=== PATIENT | male | born 1970 | race African-American/Black ===

== ENCOUNTER 2020-10-19 18:57 | Emergency (ER) | payer OTHER ==
[2020-10-19] MEDS ORDERED: NA CHLORIDE 0.9% 2,000 ML ONE (20:16)
[2020-10-19] MEDS ORDERED: MORPHINE 4 MG/ML SYR ONE ×2 (20:17→22:13)
[2020-10-19] MEDS ORDERED: ONDANSETRON 4 MG/2 ML VIAL ONE (20:17)
[2020-10-19 20:35] LABS: ALT/SGPT 35 U/L (12-78); AST/SGOT 19 U/L (15-37); Albumin 3.7 g/dL (3.4-5.0); Alkaline Phosphatase 52 U/L (45-117); BUN Blood Urea Nitrogen 20 mg/dL (7-18); Bicarbonate 25 mmol/L (21-32); Bilirubin Direct < 0.1 mg/dL (0-0.2); Bilirubin Total 0.3 mg/dL (0.2-1.0); Glucose Level 138 mg/dL (74-106); Lipase 103 U/L (73-393); Protein, Total 7.6 g/dL (6.4-8.2); Sodium Level 141 mmol/L (136-145)
[2020-10-19 20:40] LABS: Absolute Lymphocytes (CBC) 1.6 K/uL (0.7-4.9); Basophils % 0.2 % (0-1.3); Hematocrit 34.5 % (39.6-49.0); Lymphocytes % 19.8 % (15.3-44.8); MPV 9.4 fL (7.6-11.3); RBC Red Blood Cell Count 4.07 M/uL (4.33-5.43)
[2020-10-19 21:15] LABS: Barbiturates NEGATIVE (NEGATIVE); Benzodiazepines NEGATIVE (NEGATIVE); Cocaine NEGATIVE (NEGATIVE); METHAMPHETAM NEGATIVE (NEGATIVE); Methadone NEGATIVE (NEGATIVE); Opiates POSITIVE (NEGATIVE); Phencyclidine NEGATIVE (NEGATIVE); THC Cannibis NEGATIVE (NEGATIVE)
--- NOTE | 2020-10-19 21:18 | RAD REPORT ---
EXAM DESCRIPTION: CTAbdomen Pelvis W Contrast - 10/19/2020 9:02 pm CLINICAL HISTORY: Abdominal pain. G. I. bleed;Abd pain COMPARISON: No comparisons TECHNIQUE: Biphasic CT imaging of the abdomen and pelvis was performed with 100 ml non-ionic IV cont rast. All CT scans are performed using dose optimization technique as appropriate and may include automated exposure control or mA/KV adjustment according to patient size. FINDINGS: 6 mm noncalcified pulmonary nodule is seen in right lower lobe. The liver, spleen, pancreas, adrenal glands and kidneys are within normal limits. No bowel obstruction, free air, free fluid or abscess. The appendix is normal. No evidence of signi ficant lymphadenopathy. No suspicious bony findings. Small bilateral fat containing inguinal hernias. IMPRESSION: No acute intra-abdominal or pelvic finding. Small 6 mm noncalcified pulmonary nodule in the right lower lobe. Nonemergent CT chest followup would be recommended in 3-6 months.
[2020-10-19] MEDS ORDERED: PROMETHAZINE INJ 25 MG/ML AMP ONE (22:11)
--- NOTE | 2020-10-19 22:41 | EDPHYS ---
Physician Documentation [facility] Name: Shahram Donohue Age: 49 yrs Sex: Male : 1970 Arrival Date: 10/19/2020 Time: 19:00 Bed 17 Private MD: ED Physician Beni Connell HPI: 10/19 19:57 This 49 yrs old Black Male presents to ER via [employer] with complaints of pkl Nausea/Vomiting/Diarrhea. 19:57 The patient presents to the emergency department vomiting blood, coffee grounds in pkl nature, with rectal bleeding, dark red blood with bowel movement. Onset: The symptoms/episode began/occurred 3 day(s) ago. Abdominal pain: located in the right upper quadrant, left upper quadrant, right lower quadrant and left lower quadrant. The patient has not experienced similar symptoms in the past. Historical: - Allergies: 19:28 Sulfa (Sulfonamide Antibiotics); wh - PMHx: 19:27 Hyperlipidemia; Hypertension; Asthma; Diabetes - IDDM; Hemorrhoids; Perianal Venous wh Thombosis; - Immunization history:: Adult Immunizations unknown. - Social history:: Smoking status: unknown. ROS: 19:57 Eyes: Negative for injury, pain, redness, and discharge, ENT: Negative for injury, pkl pain, and discharge, Neck: Negative for injury, pain, and swelling, Cardiovascular: Negative for chest pain, palpitations, and edema, Respiratory: Negative for shortness of breath, cough, wheezing, and pleuritic chest pain. 19:57 Abdomen/GI: Positive for abdominal pain, nausea, vomiting, abdominal cramps, rectal bleeding, of the right upper quadrant, left upper quadrant, right lower quadrant and left lower quadrant. 19:57 Back: Negative for acute changes. 19:57 : Negative for urinary symptoms. 19:57 MS/extremity: Negative for acute changes. 19:57 Skin: Negative for rash. 19:57 Neuro: Negative for altered mental status, loss of consciousness. Exam: 19:57 Head/Face: Normocephalic, atraumatic. pkl 19:57 Eyes: Exam is negative for acute changes. 19:57 ENT: Mouth: Oral mucosa: Tongue: dry. 19:57 Neck: Exam negative for nuchal rigidity. 19:57 Chest/axilla: Exam negative for acute changes. 19:57 Cardiovascular: Rate: normal, Rhythm: regular. 19:57 Respiratory: the patient does not display signs of respiratory distress, Respirations: normal, Breath sounds: are clear throughout. 19:57 Abdomen/GI: Bowel sounds: normal, Palpation: soft, mild abdominal tenderness, in all quadrants, Rectal exam: Stool: guaiac positive, maroon. 19:57 Back: Exam negative for acute changes. 19:57 : Exam negative for acute changes. 19:57 Musculoskeletal/extremity: Exam is negative for acute changes. 19:57 Skin: Exam negative for rash. 19:57 Neuro: Orientation: is normal, Mentation: is normal, Cranial nerves: grossly normal, Motor: is normal. Vital Signs: 19:33 BP 148 / 92; Pulse 94; Resp 20; Temp 97.8; Pulse Ox 98% ; Weight 117.93 kg; Height 5 wh ft. 10 in. (177.80 cm); 21:00 BP 129 / 72; Pulse 78; Resp 18; Pulse Ox 98% on R/A; wh 22:41 BP 116 / 63; Pulse 102; Resp 18; Pulse Ox 95% ; wh 23:41 BP 133 / 83; Pulse 99; Resp 18; Pulse Ox 95% on R/A; 10/20 00:54 BP 127 / 81; Pulse 94; Resp 16; Pulse Ox 95% on R/A; jm8 03:49 BP 133 / 72; Pulse 89; Resp 18; Pulse Ox 94% on R/A; 10/19 19:33 Body Mass Index 37.31 (117.93 kg, 177.80 cm) MDM: 10/19 19:06 Patient medically screened. kb 22:29 Data reviewed: vital signs, nurses notes, lab test result(s), radiologic studies, CT pkl scan. ED course: Talked to Dr. Pérez. transfer to [facility]. 22:40 Patient medically screened. pkl 10/19 19:54 Order name: Basic Metabolic Panel pkl 10/19 19:54 Order name: CBC with Diff; Complete Time: 21:10 pkl 10/19 19:54 Order name: Hepatic Function; Complete Time: 21:10 pkl 10/19 19:54 Order name: Lipase; Complete Time: 21:10 pkl 10/19 19:54 Order name: Type And Screen; Complete Time: 22:41 pkl 10/19 19:54 Order name: CT Abd/Pelvis - IV Contrast Only; Complete Time: 21:54 pkl 10/19 19:54 Order name: Basic Metabolic Panel; Complete Time: 21:10 EDMS 10/19 20:08 Order name: UDS; Complete Time: 21:54 mw2 10/19 21:36 Order name: SARS-COV-2 RT PCR; Complete Time: 21:54 EDMS 10/19 19:03 Order name: Other: REMOVE RESTRAINTS FOR HYGIENE AND TREATMENT; Complete Time: 03:25 bp 10/19 19:54 Order name: IV Saline Lock; Complete Time: 20:04 pkl 10/19 19:54 Order name: Labs collected and sent; Complete Time: 20:04 pkl Administered Medications: 20:02 Drug: morphine 4 mg {Note: RASS 0.} Route: IVP; Site: right antecubital; 21:12 Follow up: Response: No adverse reaction; Pain is decreased; RASS: Alert and Calm (0) 20:03 Drug: NS 0.9% 1000 ml Route: IV; Rate: 125 ml/hr; Site: right antecubital; 20:04 Drug: Zofran (Ondansetron) 4 mg Route: IVP; Site: right antecubital; 21:12 Follow up: Response: No adverse reaction; Nausea is decreased 20:10 Drug: NS 0.9% 1000 ml Route: IV; Rate: 1000 ml; Site: right antecubital; 21:12 Follow up: Response: No adverse reaction; IV Status: Completed infusion 21:56 Drug: morphine 4 mg Route: IVP; Site: right antecubital; 10/20 03:50 Follow up: Response: No adverse reaction; Pain is decreased; RASS: Alert and Calm (0) 10/19 21:58 Drug: Phenergan (promethazine) 12.5 mg Route: IVP; Site: right antecubital; 10/20 03:50 Follow up: Response: No adverse reaction; Nausea is decreased Disposition: 10/19/20 22:40 Transfer ordered to [facility]. Diagnosis is G. I. Bleeding. - Reason for transfer: Higher level of care. - Accepting physician is Dr. Pérez. - Condition is Stable. - Problem is new. - Symptoms are unchanged. Signatures: Dispatcher [employer] EDMS Poly Jackman, CURLING MACHINE OPERATOR-C CURLING MACHINE OPERATOR-Beni Rodriguez MD MD pkl Yuliana Alvarado, RN RN Veronica Nielsen, MIKE MCKEON Timothy Arguelles, RN RN bp Corrections: (The following items were deleted from the chart) 10/19 19:55 19:54 CREATININE, SERUM+C.LAB.BRZ ordered. EDMS EDMS 20:30 20:09 CORONAVIRUS+MR.LAB.BRZ ordered. EDNC EDMS 10/20 03:51 10/19 22:40 10/19/2020 22:40 Transfer ordered to [facility]. Diagnosis is G. I. wh Bleeding. Reason for transfer: Higher level of care. Accepting physician is Dr. Pérez. Condition is Stable. Problem is new. Symptoms are unchanged. pkl
--- NOTE | 2020-10-19 22:41 | ER ---
Nurse's Notes [facility] Name: Shahram Donohue Age: 49 yrs Sex: Male : 1970 Arrival Date: 10/19/2020 Time: 19:00 Bed 17 [facility] MD: Diagnosis: G. I. Bleeding Presentation: 10/19 19:00 Chief complaint: Patient states: VOMITING AND DIARRHEA. Coronavirus screen: At this bp time, the client does not indicate any symptoms associated with coronavirus-19. Ebola Screen: No symptoms or risks identified at this time. Initial Sepsis Screen: Does the patient meet any 2 criteria? No. Patient's initial sepsis screen is negative. Does the patient have a suspected source of infection? No. Patient's initial sepsis screen is negative. Risk Assessment: Do you want to hurt yourself or someone else? Patient reports no desire to harm self or others. Onset of symptoms is unknown. 19:00 Method Of Arrival: [employer]: [place] [employer] bp 19:00 Acuity: PETER 3 bp Historical: - Allergies: 19:28 Sulfa (Sulfonamide Antibiotics); wh - PMHx: 19:27 Hyperlipidemia; Hypertension; Asthma; Diabetes - IDDM; Hemorrhoids; Perianal Venous wh Thombosis; - Immunization history:: Adult Immunizations unknown. - Social history:: Smoking status: unknown. Screenin:30 Abuse screen: Denies threats or abuse. Denies injuries from another. Nutritional wh screening: No deficits noted. Tuberculosis screening: No symptoms or risk factors identified. Fall Risk None identified. Assessment: 19:20 General: Appears in no apparent distress. uncomfortable, Behavior is calm, cooperative, wh appropriate for age. Pain: Complains of pain in abdomen. Neuro: Level of Consciousness is awake, alert, obeys commands, Oriented to person, place, time, situation, Appropriate for age. Cardiovascular: Capillary refill < 3 seconds. Respiratory: Airway is patent Respiratory effort is even, unlabored, Respiratory pattern is regular, symmetrical. GI: Abdomen is round non-distended, Reports lower abdominal pain, upper abdominal pain, cramping, diarrhea, nausea, vomiting. : No signs and/or symptoms were reported regarding the genitourinary system. EENT: No signs and/or symptoms were reported regarding the EENT system. Derm: Skin is intact, is healthy with good turgor, Skin is pink, warm \T\ dry. normal. Musculoskeletal: Circulation, motion, and sensation intact. 21:10 Reassessment: Patient appears in no apparent distress at this time. No changes from previously documented assessment. Patient and/or family updated on plan of care and expected duration. Pain level reassessed. Patient is alert, oriented x 3, equal unlabored respirations, skin warm/dry/pink. 22:41 Reassessment: Patient appears in no apparent distress at this time. Patient and/or family updated on plan of care and expected duration. Pain level reassessed. Patient is alert, oriented x 3, equal unlabored respirations, skin warm/dry/pink. 23:33 Reassessment: Report given to Gale West RN [facility]. 10/20 02:00 Reassessment: Patient appears in no apparent distress at this time. Patient and/or family updated on plan of care and expected duration. Pain level reassessed. Patient is alert, oriented x 3, equal unlabored respirations, skin warm/dry/pink. 03:49 Reassessment: Patient appears in no apparent distress at this time. Patient and/or family updated on plan of care and expected duration. Pain level reassessed. Patient is alert, oriented x 3, equal unlabored respirations, skin warm/dry/pink. Vital Signs: 10/19 19:33 BP 148 / 92; Pulse 94; Resp 20; Temp 97.8; Pulse Ox 98% ; Weight 117.93 kg; Height 5 ft. 10 in. (177.80 cm); 21:00 BP 129 / 72; Pulse 78; Resp 18; Pulse Ox 98% on R/A; 22:41 BP 116 / 63; Pulse 102; Resp 18; Pulse Ox 95% ; 23:41 BP 133 / 83; Pulse 99; Resp 18; Pulse Ox 95% on R/A; 10/20 00:54 BP 127 / 81; Pulse 94; Resp 16; Pulse Ox 95% on R/A; jm8 03:49 BP 133 / 72; Pulse 89; Resp 18; Pulse Ox 94% on R/A; 10/19 19:33 Body Mass Index 37.31 (117.93 kg, 177.80 cm) ED Course: 10/19 19:00 Patient arrived in ED. bp 19:02 Triage completed. bp 19:05 Poly Jackman[facility] kb 19:05 Sabrina Oswald MD is Attending Physician. kb 19:17 Beni Connell MD is Attending Physician. pkl 19:23 Veronica Parisi, MIKE is Primary Nurse. wh 19:30 Patient has correct armband on for positive identification. Placed in gown. Bed in low wh position. Pulse ox on. NIBP on. 19:30 Arm band placed on right wrist. wh 19:55 Missed attempt(s): 20 gauge in left antecubital area. Bleeding controlled, band aid ca1 applied, catheter tip intact. 19:59 Initial lab(s) drawn, by me, sent to lab. Inserted saline lock: 22 gauge in right ca1 antecubital area, using aseptic technique. Blood collected. 21:01 CT Abd/Pelvis - IV Contrast Only In Process Unspecified. EDMS 22:13 initiated a transfer with Sivan Felton from [facility]. mw2 22:26 doc to doc with Dr. Pérez from [facility]. 2 23:24 administrative approval given by Sivan Felton/ patient has been accepted to [facility] [place] [id number] bed 1/ Dr. Pérez accepted the patient in transfer. 23:35 waiting from [facility] to call for an ETA on transport. 2 10/20 00:20 [facility] called to give us transport information. [facility] ETA 4 AM. 2 03:50 No provider procedures requiring assistance completed. 03:51 Patient transferred, IV remains in place. Administered Medications: 10/19 20:02 Drug: morphine 4 mg {Note: RASS 0.} Route: IVP; Site: right antecubital; 21:12 Follow up: Response: No adverse reaction; Pain is decreased; RASS: Alert and Calm (0) 20:03 Drug: NS 0.9% 1000 ml Route: IV; Rate: 125 ml/hr; Site: right antecubital; 20:04 Drug: Zofran (Ondansetron) 4 mg Route: IVP; Site: right antecubital; 21:12 Follow up: Response: No adverse reaction; Nausea is decreased 20:10 Drug: NS 0.9% 1000 ml Route: IV; Rate: 1000 ml; Site: right antecubital; 21:12 Follow up: Response: No adverse reaction; IV Status: Completed infusion 21:56 Drug: morphine 4 mg Route: IVP; Site: right antecubital; 10/20 03:50 Follow up: Response: No adverse reaction; Pain is decreased; RASS: Alert and Calm (0) 10/19 21:58 Drug: Phenergan (promethazine) 12.5 mg Route: IVP; Site: right antecubital; 10/20 03:50 Follow up: Response: No adverse reaction; Nausea is decreased Outcome: 10/19 22:40 ER care complete, transfer ordered by . artur 10/20 03:51 Transferred by ground EMS to [facility], Transfer form completed. X-rays sent w/ patient. Note: Report given to [facility] Condition: stable Instructed on the need for transfer. 03:51 Patient left the ED. Signatures: Dispatcher [employer] EDMS Poly Jackman, NICC DISABILITY SPECIALIST-Beni Rodriguez MD MD Veronica Monet RN RN Timothy Arguelles RN RN Clara Lechuga mw2 Mya Dunne RN RN [facility] Gm Fong RN RN jm8 Corrections: (The following items were deleted from the chart) 10/19 23:35 23:33 Reassessment: Report given to Gema Zazueta RN [facility] 23:41 23:33 Reassessment: Report given to Gema Zazueta RN [facility] 10/20 00:50 00:20 [facility] ETA 4 AM mw2 mw2 03:51 03:50 Patient did not have IV access during this emergency room visit. [facility]
[2020-10-20 03:59] VITALS: TEMP 97.8
[2020-10-20 04:07] VITALS: BP 133/72; O2SAT 94
== END 2020-10-20 03:51 | disposition short-term general hospital (02) ==
LOC: ER 18:57
DX: K92.2 Gastrointestinal hemorrhage, unspecified (principal); I10 Essential (primary) hypertension; Z20.822 Contact with and (suspected) exposure to COVID-19; Z88.2 Allergy status to sulfonamides
CPT/HCPCS: 85025; 80048; 36415; 86900; 86850; 86901; 80076; 80307 ×8; 83690; 74177; U0003; Q9967; J2405; 96361; 96374; 96375; 99285; J2550; J7030